=== PATIENT | female | born 1995 | race Hispanic/Latino ===

== ENCOUNTER 2019-03-18 10:44 | Emergency (ER) | payer SELFPAY ==
[2019-03-18 10:56] VITALS: BP 108/43
--- NOTE | 2019-03-18 13:44 | Emergency Department Report ---
Abscess Boil HPI - HPI Chief Complaint: Skin/Abscess/Foreign Body Stated Complaint: RT THIGH PAIN Time Seen by Provider: 03/18/19 12:46 Duration: 2 Days Location: Other (right buttock) Severity: Mild History: Yes Pain, Yes Insect Bite, No Fever, No Purulent Drainage, No Numbness, No Foreign Body, No Previous History HPI: This is a 23-year-old female who presents to the emergency room with a painful abscess to right buttock for 2 days. Patient states she thinks she possibly got bitten by something. She noticed abscess warm to touch and redness around. She denies drainage, fever, numbness or tingling. Home Medications: Previous Rx's Medication Instructions Recorded Last Taken Type Clindamycin [Clindamycin CAP] 300 mg PO Q8H #21 cap 03/18/19 Unknown Rx Ibuprofen [Motrin 800 MG tab] 800 mg PO Q8HR PRN #20 tablet 03/18/19 Unknown Rx Allergies/Adverse Reactions: Allergies Allergy/AdvReac Type Severity Reaction Status Date / Time banana Allergy Swelling Verified 03/18/19 10:53 ED Review of Systems ROS: Stated complaint: RT THIGH PAIN Other details as noted in HPI Constitutional: denies: chills, fever Respiratory: denies: cough, shortness of breath, wheezing Cardiovascular: denies: chest pain, palpitations Gastrointestinal: denies: abdominal pain, nausea, diarrhea Skin: lesions (abscess to right abscess). denies: rash Neurological: denies: headache, weakness, paresthesias Psychiatric: denies: anxiety, depression ED Past Medical Hx - Past Medical History Previous Medical History?: No - Surgical History Past Surgical History?: No - Social History Smoking Status: Former Smoker Substance Use Type: None - Medications Home Medications: Home Medications Medication Instructions Recorded Confirmed Last Taken Type Clindamycin [Clindamycin CAP] 300 mg PO Q8H #21 cap 03/18/19 Unknown Rx Ibuprofen [Motrin 800 MG tab] 800 mg PO Q8HR PRN #20 tablet 03/18/19 Unknown Rx ED Abscess Boil Physical Exam - Exam General: Vital signs noted. No distress. Alert and acting appropriately. Front/Back of Body, Lg (Color): 1 - Half a centimeter nonfluctuant abscess to right buttock with surrounding cellulitis and tender to palpation Size: 1 cm Exam: Yes Tenderness, Yes Surrounding Cellulites/Erythema, Yes Normal Neurologic Exam, Yes Normal Circulation, No Fluctuance, No Lymphangitis, No Crepitation, No Heart Murmur ED Course Vital Signs 03/18/19 10:54 Temperature 97.2 F L Pulse Rate 83 Respiratory 16 Rate Blood Pressure 108/43 O2 Sat by Pulse 100 Oximetry Critical care attestation.: If time is entered above; I have spent that time in minutes in the direct care of this critically ill patient, excluding procedure time. ED Medical Decision Making - Medical Decision Making Patient is stable and examined by me. No prior histories of abscess or medical history. No acute signs of distress noted. There is a nonfluctuant half a centimeter abscess to right buttocks with surrounding cellulitis. I&D is not indicated at this time. Start clindamycin and ibuprofen Encouraged warm compresses. Given analgesics while in the ER. Discussed plan to start clindamycin and naproxen. Educated patient and spouse on follow up plan to have wound reassessed in 2-3 days. Patient agrees to ED plan of care. Discharged home and follow up with PCP in 2-3 days. ED Disposition Clinical Impression: Cellulitis and abscess of buttock Disposition: - TO HOME OR SELFCARE Is pt being admited?: No Does the pt Need Aspirin: No Condition: Stable Instructions: Cellulitis (ED), Abscess (ED) Additional Instructions: Complete full round of bactrim DS antibiotic as prescribed. Follow up with primary care doctor in 2-3 days for reevaluation. Return to ER if foul smelling discharge, swelling, or severe pain to wound. Prescriptions: Clindamycin [Clindamycin CAP] 300 mg PO Q8H #21 cap Ibuprofen [Motrin 800 MG tab] 800 mg PO Q8HR PRN #20 tablet PRN Reason: Pain , Severe (7-10) Referrals: CATY ROMANO JR, MD [Primary Care Provider] - 3-5 Days [facility] [Outside] - 3-5 Days [facility] [Outside] - 3-5 Days Time of Disposition: 14:27
[2019-03-18] MEDS ORDERED: ULTRAM PO ONE (14:19)
== END 2019-03-18 14:36 | disposition home or self-care (01) ==
LOC: ED 10:44
DX: L02.31 Cutaneous abscess of buttock (principal); L03.317 Cellulitis of buttock; Z87.891 Personal history of nicotine dependence; Z79.1 Long term (current) use of non-steroidal anti-inflammatories (NSAID); Z79.2 Long term (current) use of antibiotics; Z91.018 Allergy to other foods